=== PATIENT | female | born 2000 | race Caucasian/White ===

== ENCOUNTER 2021-11-09 10:33 | Emergency (ER) | payer SELFPAY ==
[2021-11-09 10:44] VITALS: BP 122/83; PULSE 80; RESP 16; TEMP 36.8; O2SAT 100; BMI 25.7
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
[2021-11-09] MEDS: acetaminophen 500 mg Tablet 1000 MG PO (12:24)
[2021-11-09 15:18] VITALS: PULSE 76; RESP 16; O2SAT 98
== END 2021-11-09 15:19 | disposition home or self-care (01) ==
PROVIDERS: Emergency Provider Registered Nurse
DX: S13.4XXA Sprain of ligaments of cervical spine, initial encounter (principal); V89.2XXA Person injured in unspecified motor-vehicle accident, traffic, initial encounter
CPT/HCPCS: 70450; 71111; 72125; 72128; 72131; 73502; 73700; 99284

== ENCOUNTER 2021-11-11 17:37 | Emergency (ER) | payer SELFPAY ==
[2021-11-11 17:51] VITALS: BP 121/81; PULSE 85; RESP 14; TEMP 36.9; O2SAT 98
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
[2021-11-11] MEDS: cyclobenzaprine 10 mg Tablet PO (20:11)
[2021-11-11] MEDS: predniSONE 20 mg Tablet 40 MG PO (20:33)
[2021-11-11 21:44] VITALS: BP 103/65; PULSE 82; RESP 16; O2SAT 98
== END 2021-11-11 21:55 | disposition home or self-care (01) ==
PROVIDERS: Emergency Provider Registered Nurse
DX: S39.012A Strain of muscle, fascia and tendon of lower back, initial encounter (principal); M54.30 Sciatica, unspecified side; V89.2XXA Person injured in unspecified motor-vehicle accident, traffic, initial encounter
CPT/HCPCS: 99283; J7512